=== PATIENT | female | born 1950 | race Caucasian/White ===

== ENCOUNTER 2017-10-10 06:51 | Day surgery (SDC) | payer OTHER ==
[2017-10-10] MEDS ORDERED: LABETALOL HCL 5 MG/1 ML (100MG/20 ML VIAL) ONE (07:28)
[2017-10-10] MEDS ORDERED: PROPOFOL 20 ML ONE ×6 (07:28→07:29)
[2017-10-10 07:39] VITALS: BMI 25.1
[2017-10-10 08:39] VITALS: TEMP 97.7
[2017-10-10 08:57] VITALS: PULSE 63
[2017-10-10 09:41] VITALS: BP 111/80
== END 2017-10-10 09:41 | disposition home or self-care (01) ==
LOC: JASU-ENDO 06:51
PROVIDERS: ATTEND Internal Medicine Gastroenterology
PROC: 0DJD8ZZ Inspection of Lower Intestinal Tract, Via Natural or Artificial Opening Endoscopic (ICD-10-PCS; principal; 2017-10-10 08:00)
DX: Z12.11 Encounter for screening for malignant neoplasm of colon (principal); Z80.0 Family history of malignant neoplasm of digestive organs; K92.1 Melena; K59.00 Constipation, unspecified; K57.30 Diverticulosis of large intestine without perforation or abscess without bleeding